=== PATIENT | female | born 1955 | race African-American/Black ===

== ENCOUNTER 2021-04-24 17:50 | Emergency (ER) | payer OTHER ==
[~2021-04-24] VITALS: Ht 160 cm; Wt 74.8 kg
[2021-04-24 18:35] VITALS: BP 185/115
== END 2021-04-24 18:35 | disposition home or self-care (01) ==
LOC: ER 17:50
DX: I10 Essential (primary) hypertension (principal); R59.1 Generalized enlarged lymph nodes

== ENCOUNTER → 2021-05-02 | Outpatient (CLI) | payer OTHER | LOC: CAT 04-26 13:27 | PROVIDERS: ATTEND Nurse Practitioner | DX: R91.8 Other nonspecific abnormal finding of lung field (principal); E01.0 Iodine-deficiency related diffuse (endemic) goiter; I25.10 Atherosclerotic heart disease of native coronary artery without angina pectoris; R59.0 Localized enlarged lymph nodes ==

== ENCOUNTER → 2021-05-07 | Outpatient (CLI) | payer OTHER ==
--- NOTE | 2021-05-11 12:07 | PATH ---
[facility] [address] [place] [address] PATHOLOGY RPT PROCEDURE Name: YESY ROSA Room #: REG SANJANA Crawford.#: [id number] Admission: 05/07/21 Date of : 51 Discharge: Report #: [id number] Path Case #: [id number] [facility] Accession Number: [id number] . 01 Material submitted: . lymph node - RIGHT SUPRACLAVICULAR NODE. Modifiers: right, SUPRACLAVIULAR . 01 Clinical history: . 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 02 Diagnosis: Lymph node, right supraclavicular node, needle core biopsy: - Favor reactive lymph node, see comment. - Flow cytometry pending at the time of this report, to be reported as an addendum. (IUV:wilbert; 05/10/2021) S 05/10/2021 1309 Local . 02 Comment: Examination shows a reactive lymph node with germinal centers, intact mantle zones, and peripheral areas. Atypical epithelial cells suggestive of carcinoma, metastatic malignancy as well as Mook-Bonny cells or morphologically abnormal cells are not identified. Specimen was sent for flow cytometric analysis and that report is pending at the time of this report. To confirm findings in a tissue architecture context multiple properly controlled immunohistochemical stains are performed on block A1 and are interpreted as follows: . CD20- Reactive within B-cells in the terminal centers and mantle zones. CD3 - Reactive within the T-cells. CD5 - Reactive within the T-cells (no co-expression identified). CD10 - Reactive within the B-cells in the germinal centers. MUM1 - Reactive within scattered rare sinus plasma cells. CD23 - Reactive within the residual dendritic cell meshwork in the germinal center (no co-expression identified). BCL2 - Germinal centers are nonreactive. BCL6 - Reactive within the lymphocytes in the germinal centers. CD68 - Reactive within the macrophages scattered through the tissue. PAX5 - Reactive within the B-cells in the germinal centers and mantle zones. Cyclin D1 - Nonreactive within the B-cells (no co-expression identified). . Based on the morphology as well as the immunohistochemical stains, findings support a reactive lymph node. Dr. Anne Ceron has seen this case and concurs with the diagnosis as well as the interpretation. (IUV:wilbert; 05/10/2021) [place] [address] PATHOLOGY RPT PROCEDURE Name: YESY ROSA ANN Room #: REG SANJANA Landin#: [id number] Admission: 05/07/21 Date of : 51 Discharge: Report #: [id number] Path Case #: [id number] . 02 Addendum: . Special studies report received from [facility], [address] [place] [address], [address] [facility], [place], [address], on case [id number], labeled with their number [id number], dated 05/10/2021. . Flow Cytometry: Hematologic Neoplasia Assessment . Clinical History . . 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 Specimen Lymph Node, Right Supraclavicular . Viability 86% (7AAD exclusion) . Interpretation Lymph Node, Right Supraclavicular: No significant lymphoid immunophenotypic abnormalities detected . Comments Correlation with available clinical, laboratory, and morphologic data is recommended. . Populations Analyzed Lymphocytes: 85% B-cells: 34.7%, polytypic/polyclonal sIg light chain pattern (K/L= 1.8:1) T-cells: no significant abnormalities of the markers tested CD4:CD8: 3.6 NK cells: 0.8% Granulocytes: 0.4% Present Monocytes/ 0.02% Present Histiocytes: CD45 Negative 14% No significant reactivity with the markers tested Events/Debris: (may represent non-hematolymphoid cells, degenerated cells, debris, unlysed red blood cells, etc.) . Morphologic Evaluation A slide was reviewed for assistant quality manager purposes only. . Specimen Description Total Cell Yield: 2.18 X 10 and [address] [address] PATHOLOGY RPT PROCEDURE Name: YESY ROSA Room #: REG SANJANA Landin#: [id number] Admission: 05/07/21 Date of : 51 Discharge: Report #: [id number] Path Case #: [id number] . Reagent(s) Used CD2, CD3, CD4, CD5, CD7, CD8, CD10, CD11b, CD19, CD20, CD23, CD30, CD38, CD43, CD45, CD56, CD57, FMC-7, HLA-DR, kappa, lambda . at [facility]. Bentley Spangler MD Pathologist . Intended Use Flow cytometry is optimally used to immunophenotypically characterize abnormal populations when they are detected. Negative flow cytometry results do not exclude lymphoma or neoplasia. Possible false negative flow cytometry results may occur in, but are not limited to, the following: neoplastic cells in Hodgkin lymphoma are not typically adequately represented by routine clinical flow cytometry; neoplastic cells may be lost or inadequately represented due to degeneration, sample processing, sampling artifact, or patchy involvement; plasma cells are typically underrepresented by flow cytometry; immature cells/blasts may be underrepresented due to hemodilution; myeloproliferative disorders and low grade myelodysplasia may not have immunophenotypic abnormalities or increased blasts. Correlation with all available clinical, laboratory, and morphologic data is always necessary to assess for the possibility of false negative flow cytometry results and to establish a diagnosis. Each marker in this analysis was used to assess for potential antigenic abnormalities or to evaluate detected abnormalities. . Any image or images that accompany this report are entry level marketing representative images only and should not be used to render a diagnosis. . Disclaimer(s) This test was developed and its performance characteristics determined by [facility] It has not been cleared or approved by the Food and Drug Administration. . [facility] is a business unit of [facility] a wholly-owned subsidiary of [employer]. . This test was performed at [facility]. at [address], [address] - [employer] Developer: Grayson Crump MD. . For inquiries, the physician may contact Lab: [phone] . A complete copy of the report is on file. [address] [address] PATHOLOGY RPT PROCEDURE Name: YESY ROSA Room #: REG [facility] M.R.#: [id number] Admission: 05/07/21 Date of : 51 Discharge: Report #: [id number] Path Case #: [id number] . Professional services performed by [facility] at [address], [place] [address]. Technical services performed by [facility] at [address], [place] [address]. . (IUV:amlary 05/10/2021) . [place]/05/11/2021 Addendum Electronically Signed by Donna Art MD, Pathologist . 02 Electronically signed: . Donna Art MD, Pathologist NPI- [id number] . 01 Gross description: . The specimen is received in 2 parts. The first part is received in formalin, labeled "ShelleyYesy fairchild Brayden, RT supraclavicular node". It consists of multiple gotti-brown, irregular soft tissue fragments measuring 0.4 x 0.2 x 0.1 cm in aggregate. The specimen is placed in a biopsy bag and entirely submitted in A1. . The second part is received in RPMI, labeled "Yesy Rosa, RT supraclavicular node". It consists of multiple white irregular soft tissue fragments measuring 0.6 x 0.2 x 0.1 cm in aggregate. The specimen is entirely submitted in RPMI and forwarded to send outs for further processing. (MRF; 05/07/2021) MFE/MFE 05/10/2021 1300 Local . 02 Pathologist provided ICD-10: R59.0 . 02 CPT . 755176, [id number], N37460 Specimen Comment: A courtesy copy of this report has been sent to [phone] Specimen Comment: Report sent to / DR CHIN Performed at: [address], [place], [place] [id number] MD Idris Martinez MD Phone: [phone] Performed at: [address] [id number] MD Donna Art MD Phone: [phone]
== END | disposition home or self-care (01) ==
LOC: ULTRA 09:05
PROVIDERS: ATTEND Nurse Practitioner
DX: R59.0 Localized enlarged lymph nodes (principal); I10 Essential (primary) hypertension

== ENCOUNTER → 2021-06-01 | Outpatient (CLI) | payer OTHER ==
[~2021-06-01] MED LIST: NORVASC5 MG PO; ROSUVASTATIN CA20 MG PO
== END ==
LOC: PET 10:42
PROVIDERS: ATTEND Family Medicine
DX: R91.8 Other nonspecific abnormal finding of lung field (principal); R59.0 Localized enlarged lymph nodes

== ENCOUNTER → 2021-06-27 | Outpatient (CLI) | payer OTHER ==
[~2021-06-27] VITALS: Ht 160 cm; Wt 74.8 kg
[2021-06-27 10:32] LABS: HEMATOCRIT 38.4 % (37.0-47.0); HEMOGLOBIN 12.9 gm/dL (12.0-15.0); MCH 30.6 pg (26.0-34.0); MCHC 33.6 g/dL (28.0-37.0); RBC 4.22 mil/uL (4.20-5.00); RDW 13.6 % (10.5-14.5); WBC 6.6 thou/uL (4.0-11.0)
[2021-06-27 10:43] VITALS: BP 128/72
[2021-06-27 10:48] LABS: PROTIME 10.9 Seconds (10.5-12.1)
[2021-06-27 11:55] VITALS: BP 131/66
[2021-06-27 12:00] VITALS: BP 122/57
[2021-06-27 12:05] VITALS: BP 107/55
[2021-06-27 12:10] VITALS: BP 110/53
[2021-06-27 12:15] VITALS: BP 114/55
--- NOTE | 2021-06-29 10:06 | PATH ---
[facility] [address] [place] [address] PATHOLOGY RPT PROCEDURE Name: YESY MORRISON Room #: REG SANJANA MLalitha.#: [id number] Admission: 06/27/21 Date of : 51 Discharge: Report #: [id number] Path Case #: [id number] [facility] Accession Number: [id number] . 01 Material submitted: . lung - LEFT LUNG MASS. Modifiers: left . 02 Diagnosis: Left lung mass, needle core biopsies: - Moderately differentiated adenocarcinoma. (ANK:wilbert; 06/28/2021) S 06/28/2021 1527 Local . 02 Comment: Immunohistochemical stains are performed on block A1 at [facility] with appropriate controls and show the following results: . TTF-1:positive in tumor cells Napsin: positive in tumor cells p40: negative in tumor cells . Findings favor an adenocarcinoma of pulmonary origin. . This case has been co-reviewed with Dr. Idris Martinez, who concurs with the diagnosis, on 06/28/2021. . 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 Garcia on 06/29/2021 at 0940 am . . (ANK:wilbert; 06/28/2021) . 02 Electronically signed: . Shannan Garcia MD, Pathologist NPI- [id number] . 01 Gross description: . The specimen is received in formalin, labeled "Yesy Morrison, left lung mass". Received are multiple fragments of pale white to light gotti needle core tissue measuring 1.5 x 0.2 x 0.1 cm in aggregate dimensions. The specimen is filtered and entirely submitted in cassette A1. ([facility]; 06/27/2021) NRI/NRI 06/27/2021 2150 Local . 02 Pathologist provided ICD-10: C34.92 . 02 CPT . [address] [address] PATHOLOGY RPT PROCEDURE Name: YESY MORRISON ANN Room #: REG CLI M.R.#: [id number] Admission: 06/27/21 Date of : 51 Discharge: Report #: [id number] Path Case #: [id number], [id number] Specimen Comment: A courtesy copy of this report has been sent to [phone] Specimen Comment: Report sent to / DR CHIN Performed at: [address], [place], [place] [id number] MD Idris Martinez MD Phone: [phone] Performed at: [address] [id number] MD Donna Art MD Phone: [phone]
== END | disposition home or self-care (01) ==
LOC: CAT 09:38
PROVIDERS: Radiology Diagnostic Radiology; ATTEND Nurse Practitioner
DX: C34.12 Malignant neoplasm of upper lobe, left bronchus or lung (principal); I10 Essential (primary) hypertension; F17.210 Nicotine dependence, cigarettes, uncomplicated; Z98.890 Other specified postprocedural states; Z79.899 Other long term (current) drug therapy; Z90.710 Acquired absence of both cervix and uterus

== ENCOUNTER → 2021-08-27 | Outpatient (CLI) | payer OTHER ==
[2021-08-27 09:19] LABS: CREATININE 0.8 mg/dL (0.6-1.0)
== END ==
LOC: CAT 08:30
PROVIDERS: ATTEND Internal Medicine Hematology & Oncology
DX: C34.12 Malignant neoplasm of upper lobe, left bronchus or lung (principal); I25.10 Atherosclerotic heart disease of native coronary artery without angina pectoris; E04.9 Nontoxic goiter, unspecified; I77.811 Abdominal aortic ectasia; N28.1 Cyst of kidney, acquired; I26.99 Other pulmonary embolism without acute cor pulmonale; M25.70 Osteophyte, unspecified joint